=== PATIENT | male | born 1955 | race Caucasian/White ===

== ENCOUNTER → 2022-12-31 | Outpatient (CLI) | payer MEDICARE, OTHER | LOC: RAD 15:21 | DX: M19.011 Primary osteoarthritis, right shoulder (principal) ==

== ENCOUNTER → 2023-01-09 | Outpatient (CLI) | payer MEDICARE, OTHER | LOC: RAD 13:29 | DX: M19.09 Primary osteoarthritis, other specified site (principal); M25.48 Effusion, other site; M65.88 Other synovitis and tenosynovitis, other site; R07.89 Other chest pain | CPT/HCPCS: A9575 ==

== ENCOUNTER → 2024-07-07 | Outpatient (CLI) | payer MEDICARE, OTHER ==
[2024-07-07 17:19] LABS: BASO # 0.02 K/mm3 (0.02-0.10); EOS # 0.11 K/mm3 (0.04-0.40); EOS % 1.8 % (0.0-4.0); HEMATOCRIT 40.2 % (42.0-52.0); HEMOGLOBIN 13.4 g/dL (13.5-18.0); LYMPH# 2.58 K/mm3 (1.50-4.00); MEAN CELL VOLUME 94 fl (78-100); MEAN CORPUSCULAR HEMOGLOBIN 31 pg (27-31); MEAN CORPUSCULAR HGB CONC 33 g/dL (33-37); MONO # 0.46 K/mm3 (0.20-0.80); NEU # 2.97 K/mm3 (1.40-6.50); PLATELET COUNT 286 K/mm3 (130-400); RED BLOOD COUNT 4.29 M/mm3 (4.20-5.60); RED CELL DISTRIBUTION WIDTH 12.7 % (11.5-14.5); WHITE BLOOD COUNT 6.1 K/mm3 (4.8-10.8)
[2024-07-07 17:24] LABS: ALBUMIN 4.6 g/dL (3.4-4.8); SODIUM 140 mmol/L (136-145)
[2024-07-07 17:26] LABS: CALCIUM 10.3 mg/dL (8.3-10.5)
[2024-07-07 17:27] LABS: GLUCOSE 98 mg/dL (75-110); TOTAL PROTEIN 7.2 g/dL (6.2-8.1)
[2024-07-07 17:28] LABS: CARBON DIOXIDE 21 mmol/L (23-31)
[2024-07-07 17:29] LABS: TOTAL BILIRUBIN 0.3 mg/dL (0.2-1.2)
[2024-07-07 17:32] LABS: AST-SGOT 20 U/L (5-34)
[2024-07-07 17:33] LABS: ALT/SGPT 21 U/L (0-55)
== END ==
LOC: LAB 17:02
PROVIDERS: Nurse Practitioner
DX: M12.28 Villonodular synovitis (pigmented), other specified site (principal)